=== PATIENT | male | born 1965 | race Caucasian/White ===

== ENCOUNTER 2016-11-16 23:52 | Inpatient (IN) ==
[2016-11-17] MEDS ORDERED: D5% in Water 1,000 ML IV PRN (03:30)
[2016-11-17] MEDS ORDERED: Dextrose Gel 15 GM PO PRN ×2 (03:30)
[2016-11-17] MEDS ORDERED: *HR* Dextrose 50 % in Water (Syg) 50 ML SYRINGE IVP PRN (03:30)
--- NOTE | 2016-11-17 03:33 | Internal Med History&Physical ---
Date of Encounter: 11/17/16 Time of Encounter: 03:28 Assessment and Plan (1) Vasovagal syncope Current visit: Yes Status: Acute Suspect vasovagal' syncope. We will keep on telemetry to look for any arrhythmias given his LV systolic dysfunction. He also has troponin elevation 4.4 which may have been related to hypotension and bradycardia during this event. He mentioned he had an angiogram before showing no occlusive disease. continue aspirin. will hold his heart rate and blood pressure lowering medications tonight. He is also multiple blood pressure lowering medications including digoxin, coreg and Cardizem. Will check digoxin level (2) Atrial fibrillation Current visit: Yes Status: Acute Continues xarelto current rate 60s 70 Qualifiers: Qualified Code(s): I48.91 - Unspecified atrial fibrillation (3) NSTEMI (non-ST elevated myocardial infarction) Current visit: Yes Status: Acute suspect NSTEMI type 2 due to demand ischemia from hypotension and bradycardia. Will try to get records of prior angiogram. Cardiology service to see. (4) Diabetes mellitus type 2 in obese Current visit: Yes Status: Acute Continue long acting and pre-meal insulin (5) CKD stage 3 secondary to diabetes Current visit: Yes Status: Acute Stable Internal Medicine - H&P: HPI Chief complaint: Syncope History of present illness: Mr. Cross is a 51 year old male with a history of non-ischemic cardiomyopathy, chronic persistent atrial fibrillation on anticoagulation diabetes mellitus type II and chronic kidney disease stage III, presented to outside emergency room after a global episode. While patient while sitting down home he started feeling nauseous with epigastric discomfort, felt that he wants to go to the bathroom on his way to continue to feel lightheaded sweaty after which he lost consciousness and fell down. he denies hitting his head. He thinks he lost consciousness only for a few seconds. I continue to feel nauseous afterwards had diarrheal bowel movements. This episode lasted for approximately 15 minutes. He denies any chest pain during that episode. No palpitations. On arrival of the paramedics they reported that his heart rate was 30 short of any further details with regards to presence of any heart block or not he was also hypotensive. He responded well to fluids. He was a symptomatic afterwards. He has not noticed any blood in his bowel movement. No recent febrile illness. History .10 .4 outside emergency room and therefore he was transferred to our facility. He mentioned that he had an angiogram before which showed no occlusive coronary heart disease. Patient denies any focal neurological deficits. Past Med Surg Social Fam HX - Past Medical History Medical history: CHF, hyperlipidemia, hypertension, myocardial infarction, other Psychiatric history: no psych history - Past Surgical History Surgical History: appendectomy, other - Social History Smoking Status: Former smoker Smokeless Tobacco Status: No Alcohol use: occasionally Drug use: none - Family History Mother Hx Family Cancer: Yes (Lung) Internal Medicine - H&P: Meds Carvedilol [Coreg] 25 mg PO BID 12/10/15 [History] Furosemide [Lasix] 40 mg PO DAILY 12/10/15 [History] Aspirin 81 mg PO DAILY #30 tab.chew 12/14/15 [Rx] Diltiazem CD (24hr) [Cardizem CD] 240 mg PO DAILY #30 cap.er.24h 12/14/15 [Rx] Insulin DETEMIR [Levemir] 30 unit SQ HS 30 Days 12/14/15 [Rx] Insulin LISPRO [HumaLOG] 17 units SQ TIDWM 30 Days 12/14/15 [Rx] Lisinopril [Zestril] 20 mg PO DAILY #30 tablet 12/14/15 [Rx] Rivaroxaban [Xarelto] 20 mg PO DAILY #30 tablet 12/14/15 [Rx] Atorvastatin [Lipitor] 10 mg PO HS 11/17/16 [History] Allergies No Known Allergies Allergy (Verified 12/10/15 02:58) All Systems PM: A 10-system review of systems was performed and is negative for pertinent findings except as documented above in the HPI. Review of systems: 10 point review of systems is negative except for HPI - Constitutional Vitals: Temp Pulse Resp BP Pulse Ox 97.6 F 77 16 116/96 95 11/17/16 01:31 11/17/16 01:31 11/17/16 01:31 11/17/16 01:31 11/17/16 01:31 Exam: Gen.: patient is alert and oriented times 3 not in distress Cindy: normal S1 S2 no additional sounds of chest: clear to auscultation abdomen: soft nontender nondistended lower extremity: no swelling neurological no focal deficit
[2016-11-17 04:07] LABS: Creatine Kinase 51 Units/L (30-200)
[2016-11-17 05:07] LABS: Digoxin < 0.3 ng/mL (0.8-2.0)
[2016-11-17] MEDS: 0.9 % Sodium Chloride 1,000 ML IVC SCH (06:08)
[2016-11-17] MEDS: Aspirin 81 MG TAB.CHEW PO SCH (08:29)
[2016-11-17] MEDS: Insulin LISPRO 300 UNITS/3 ML VIAL SQ SCH ×4 (08:30→21:06)
[2016-11-17] MEDS ORDERED: *HR* Rivaroxaban 10 MG TABLET PO SCH (09:00)
--- NOTE | 2016-11-17 09:08 | Cardiology Consult Note ---
Date of Encounter: 11/17/16 Time of Encounter: 08:30 Assessment and Plan (1) Syncope Current Visit: Yes Status: Acute Patient presented after syncopal episode. Per EMS report--patient was incontinent of bowel, HR in the 30's and was hypotensive--90/palp. Reports viral illness a few days prior to event. Continue to hold AV ashkan blocking agents for now--on cardizem, digoxin, and coreg at home. Monitor telemetry. Echocardiogram pending. Carotid US 12/26/15 showed minimal plaque. Qualifiers: Syncope type: unspecified Qualified Code(s): R55 - Syncope and collapse (2) Elevated troponin Current Visit: Yes Status: Acute Mild troponin elevation in the setting of syncopal event likely secondary to bradycardia and hypotension. Likely demand ischemia. No ischemic ECG changes. Denies chest pain. Most recent TTE shows recovered LVEF--60%. [facility] 02/2015: mild-moderate non-obstructive CAD. Repeat echocardiogram pending. Continue asa and statin. Hold betablocker for now. (3) Non-ischemic cardiomyopathy Current Visit: Yes Status: Acute Hx of systolic dysfunction with recovered EF--most recent TTE shows EF 60% ( previously 25% in the past). [facility] 02/19/15: mild-moderate non-obstructive CAD. Appears euvolemic upon exam. (4) Atrial fibrillation Current Visit: Yes Status: Acute Hx of persistent atrial fibrillation dating back to 2014. Previously rate controlled on oral betablocker, digoxin, & calcium channel sukumar; however on hold due to reported HR in 30's per EMS (no strips available ) Avg HR since admission=78 afib. Continue to monitor telemetry, may need to resume medications at decreased doses. Anticoagulated on Xarelto. Qualifiers: Atrial fibrillation type: persistent Qualified Code(s): I48.1 - Persistent atrial fibrillation Discussion w patient/family: The assessment and plan as outlined above was discussed with the patient and/or family members who expressed understanding and agreement. All questions were answered. Thank you for involving us in the care of your patient. Please call with any questions. The patient will be discussed and reviewed with Dr. Unger; changes to be made accordingly. History of Present Illness Consult date: 11/17/16 Requesting physician: Antonio Oliveros Consult reason: Syncope Chief complaint: Syncope History of present illness: Mr. Cross is a 51 year old male with PMH significant for non-ischemic cardiomyopathy with recovered EF, atrial fibrillation, DMII, HTN, ETOH use (3-4 beers/weekend) and obesity who presented to the ED after a syncopal episode at home. He reports he was sitting on his couch and suddenly became diaphoretic, experienced nausea and abdominal cramping; he stood up to walk to the bathroom and passed out. Event was witnessed by his sister who called EMS. Reports flu like symptoms x2 days prior to event. Of note, recently re-started on insulin 2 weeks ago, "ran out" for over a month and blood sugars ran >600. He was taken to [facility] and then was sent to [facility] for further evaluation. Per squad report , HR was in the 30's and BP was 90 over palp--no ECG strips available for review. ECG obtained at [facility] showed Atrial fibrillation, rate 63. Labs at [facility]-- Na 138, K 3.9, Glucose 337, BUN 19, SCr 1.59, Mag 1.5, HgB 14.5 and HCT 44.3 Prior CV testing includes: TTE 12/03/14: EF 20-25% TTE 02/18/15: poor quality study, LV function appears moderately reduced, severely dilated LA and RA LHC 02/19/15: mild-moderate non-obstructive CAD, EF 20-25% (50% mLAD, 20% 1st OM, 15% mRCA) BCS 12/11/16: bilateral carotids have minimal plaque throughout TTE 12/21/15: EF 60%, mild concentric LVH Past Med Surg Social Fam HX - Past Medical History Attestation: Yes The following information was validated with the patient. Source: patient, old records reviewed Medical history: atrial fibrillation, cardiomyopathy (non-ischemic, recovered EF ), diabetes, hypertension, myocardial infarction Psychiatric history: no psych history - Past Surgical History Surgical History: appendectomy - Social History Smoking Status: Former smoker Smokeless Tobacco Status: No Alcohol use: occasionally (3-4 beers/weekend) Drug use: none - Family History Mother Hx Family Cancer: Yes (Lung) Medications and Allergies Carvedilol [Coreg] 25 mg PO BID 12/10/15 [History] Furosemide [Lasix] 40 mg PO DAILY 12/10/15 [History] Aspirin 81 mg PO DAILY #30 tab.chew 12/14/15 [Rx] Diltiazem CD (24hr) [Cardizem CD] 240 mg PO DAILY #30 cap.er.24h 12/14/15 [Rx] Insulin DETEMIR [Levemir] 30 unit SQ HS 30 Days 12/14/15 [Rx] Insulin LISPRO [HumaLOG] 17 units SQ TIDWM 30 Days 12/14/15 [Rx] Lisinopril [Zestril] 20 mg PO DAILY #30 tablet 12/14/15 [Rx] Rivaroxaban [Xarelto] 20 mg PO DAILY #30 tablet 12/14/15 [Rx] Atorvastatin [Lipitor] 10 mg PO HS 11/17/16 [History] Allergies No Known Allergies Allergy (Verified 12/10/15 02:58) All Systems Review: A 10-system review of systems was performed and is negative for pertinent findings except as documented above in the HPI. - Cardiovascular Cardiovascular: as per HPI Physical Examination Vital Signs, Last 4 Hours Temp Pulse Resp BP Pulse Ox 11/17/16 07:16 97.3 F L 75 16 126/97 95 11/17/16 05:31 97.9 F 72 16 123/90 96 General: Conversant, Other (obese) HEENT: Atraumatic, Normocephaly Cardiac: Other (irregularly irregular) Lungs: Normal Breath Sounds Neuro: Alert and responsive Abdomen: Soft Skin: No rashes noted on visualized skin Musculoskeletal: No Chest Wall Tenderness Extremities: No Edema, Normal Pulses Results Lab Results 11/17/16 03:45 Troponin I 0.07 H* Active Medications Aspirin (Aspirin) 81 mg PO DAILY ARGELIA Stop: 05/19/17 09:01 Last Admin: 11/17/16 08:29 Dose: 81 mg Atorvastatin Calcium (Lipitor) 10 mg PO HS ARGELIA Stop: 05/19/17 21:01 Dextrose (Dextrose 5%) 1,000 mls @ 100 mls/hr IV CONT PRN PRN Reason: HYPOGLYCEMIA Stop: 05/19/17 03:31 Sodium Chloride (0.9 % Sodium Chloride) 1,000 mls @ 50 mls/hr IVC .Q20H ARGELIA Stop: 05/19/17 03:46 Last Admin: 11/17/16 06:08 Dose: 50 mls/hr Insulin Human Lispro (Humalog) 0 units SQ TIDAC [facility] PRN Reason: Protocol Stop: 05/19/17 07:31 Last Admin: 11/17/16 08:30 Dose: Not Given Insulin Human Lispro (Humalog) 0 units SQ HS [facility] PRN Reason: Protocol Stop: 05/19/17 21:01 Rivaroxaban (Xarelto) 20 mg PO DAILY [facility] Stop: 05/19/17 09:01 Last Admin: 11/17/16 08:29 Dose: 20 mg - Imaging and Cardiology Echo: report reviewed Cardiac cath: report reviewed Other Results: Telemetry review: avg HR=78 Afib. No significant event noted. - EKG Interpretation EKG results cardiology: personally reviewed Consult Discharge Plan - Plan Referrals: Tarik Barton DO [Primary Care Provider] -
--- NOTE | 2016-11-17 09:31 | Internal Med Progress Note ---
Date of Encounter: 11/17/16 Time of Encounter: 09:00 - Subjective Interval history: Patient is a 51-year-old male admitted for syncope. His past medical history is significant for non-ischemic cardiomyopathy with recovered EF, atrial fibrillation, DMII, HTN, ETOH use (3-4 beers/weekend) and obesity. Patient was seen and examined. He is awake alert oriented 3. Denies dizziness , lightheaded, nausea, vomiting. Patient said that he has stomach cramp before he has syncope. Vital signs stable. We will continue cardiac monitoring, placed cardiac echo and carotid duplex. Cardio consult appreciated. (1) Vasovagal syncope Current visit: Yes Status: Acute Suspect vasovagal' syncope. We will keep on telemetry to look for any arrhythmias given his LV systolic dysfunction. He also has troponin elevation which may have been related to hypotension and bradycardia during this event. He mentioned he had an angiogram before showing no occlusive disease. continue aspirin. will hold his heart rate and blood pressure medications at this point. digoxin level is not high. (2) Atrial fibrillation Current visit: Yes Status: Acute Continues xarelto current rate 60s 70 Qualifiers: Qualified Code(s): I48.91 - Unspecified atrial fibrillation (3) NSTEMI (non-ST elevated myocardial infarction) Current visit: Yes Status: Acute suspect NSTEMI. Patient has no chest pain. He has chronic elevated troponin. Will trend 3 sets of troponin. Cardio consult on case. (4) Diabetes mellitus type 2 in obese Current visit: Yes Status: Acute Continue long acting and pre-meal insulin (5) CKD stage 3 secondary to diabetes Current visit: Yes Status: Acute Stable 6. DVT prophylaxis: Patient is on xarelto. - Constitutional Vitals: Temp Pulse Resp BP Pulse Ox 97.3 F L 75 16 126/97 95 11/17/16 07:16 11/17/16 07:16 11/17/16 07:16 11/17/16 07:16 11/17/16 07:16 General appearance: Present: A&O X 3, answers questions appropriately - Head Head exam: Present: atraumatic, normocephalic - Eye Eye exam: Present: PERRL, conjuntiva pink, sclera anicteric Pupils: Present: PERRL - Neck Neck exam general surgery: Present: supple, trachea midline. Absent: lymphadenopathy - Respiratory Respiratory exam: Present: CTAB. Absent: accessory muscle use, rales, rhonchi, wheezes - Cardiovascular Cardiovascular exam: Present: RRR, +S1, +S2. Absent: diastolic murmur, gallop, rubs, systolic murmur - GI/Abdominal GI/Abdominal exam: Present: normal bowel sounds, soft, no peritoneal signs. Absent: distended, tenderness - Extremities Exam Extremities exam: Present: warm, radial pulses palpable and symetrical. Absent : calf tenderness, cyanotic, pedal edema - Neurological Exam Neurological exam: Present: CN II-XII intact, oriented X3, no focal deficits. Absent: pronater drift, facial droop, speech deficit - Skin Skin exam: Present: dry, intact Internal Medicine: Result - Labs Labs: Cardiac Enzymes 11/17/16 Range/Units 03:45 Troponin I 0.07 H* (0-0.03) ng/mL Consult Discharge Plan - Plan Referrals: Tarik Barton DO [Primary Care Provider] -
[2016-11-17] MEDS ORDERED: Perflutren Lipid Microsphere 1.3 ML in 0.9 % Sodium Chloride 8.7 ML IVP ONE (10:38)
[2016-11-17 12:12] LABS: BUN/Creatinine Ratio 14 (6-26); Blood Urea Nitrogen 14 mg/dL (8-26); Calcium 9.5 mg/dL (8.6-10.8); Carbon Dioxide 21 mEq/L (19-29); Chloride 109 mEq/L (98-109); Creatine Kinase 51 Units/L (30-200); Glucose 174 mg/dL (70-99); Osmolality,Calculated 293 (280-300); Sodium 139 mEq/L (136-145); eGFR For African Americans > 60 (> 60); eGFR For Non-African Americans > 60 (> 60)
[2016-11-17 12:13] LABS: Potassium 4.7 mEq/L (3.5-4.5)
[2016-11-17] MEDS: Diltiazem CD (24hr) 240 MG CAPSULE PO SCH (13:58)
--- NOTE | 2016-11-17 14:49 | ECHO - Doppler Report ---
Echo with Imaging Enhancement Agent Name: Steve Cross Date of Study: 11/17/2016 Date: 1965 Ht: 71.0 in Medical Record#: [id number] Age: 51 Wt: 285.0 lb Gender: Male BSA: 2.45 Order #: [id number] Location: [facility] Room #: [id number] Reading Physician: Vel Mcclain MD, [facility] Motorcycle Mechanic: Indu Arzola RVT Ordering Physician: Antonio Oliveros MD Primary Physician: Tarik Barton DO Indications: Syncope Impressions: Technically sub-optimal due to poor echocardiographic windows. Echo contrast was used. Severe LV systolic dysfunction, LVEF 25%. There is global LV hypokinesis. Indeterminate diastolic function due to atrial fibrillation. Right ventricle was not well visualized. Appears mildly dilated with normal function. Severely dilated left atrium. Severely dilated right atrium. Moderate tricuspid regurgitation. Mild mitral regurgitation. Mild pulmonary hypertension. Estimated RVSP = 37 mmHg. Left Ventricular Wall Motion: Rest Echo Findings The apex, apical inferior, mid inferior, basal inferior, apical anterior, mid anterior, basal anterior, apical septal, mid inferior septal, basal inferior septal, apical lateral, mid anterior lateral, basal anterior lateral, mid anterior septal, mid inferior lateral, basal anterior septal and basal inferior lateral hampton were hypokinetic. Findings: Study Quality * Technically sub-optimal due to poor echocardiographic windows. Echo contrast was used. ECG Findings * Atrial fibrillation. Left Ventricle * Severe LV systolic dysfunction, LVEF 25%. There is global LV hypokinesis. * Normal LV chamber size and wall thickness. * Indeterminate diastolic function due to atrial fibrillation. Right Ventricle * Right ventricle was not well visualized. Appears mildly dilated with normal function. Left Atrium * Severely dilated left atrium. Right Atrium * Severely dilated right atrium. Aorta * Normally sized aortic root. Pericardium * There is no pericardial effusion present. IVC * The IVC is midlly dilated. Tricuspid Valve * Normal tricuspid valve structure. * No tricuspid stenosis. * Moderate tricuspid regurgitation. * Mild pulmonary hypertension. Estimated RVSP = 37 mmHg. Aortic Valve * Trileaflet aortic valve. * Mildly sclerotic aortic valve leaflets. * No aortic stenosis. * No aortic regurgitation. Pulmonic Valve * Pulmonic valve is not well visualized. * No pulmonic stenosis. * Trace pulmonic regurgitation. Mitral Valve * Normal mitral valve structure. * No mitral stenosis. * Mild mitral regurgitation. History Hypertension Diabetes Hypercholesteremia Congestive Heart Failure 12/12/2015 a Previous Echo was performed. Contrast: Definity 1.3 ml in 8.7 ml of saline 3 ml. Measurements: BP: 126/ 97 2D Normal Values RVIDd: 4.50 cm IVSd: 1.00 cm 0.6 - 1.0 cm LVIDd: 5.80 cm 3.7 - 5.6 cm LVPWd: 1.00 cm 0.6 - 1.1 cm LVIDs: 4.90 cm 1.5 - 3.6 cm AO: 3.00 cm < 4.0 cm LA volume: 112 Tricuspid Valve TV Regurg Peak Grad: 29.00mmHg TV Regurg Peak Sebastián: 2.70m/sec Updated by Vel Mcclain MD, [facility] on 11/17/2016 2:43:38 PM electronically signed on 11/17/2016 2:44:10 PM with status of Final Wall Motion [place]: 1=Normal, 2=Hypokinesis, 3=Akinesis, 4=Dyskinesis, 5=Aneurysmal, 6=Hyperkinetic, X=Not Visualized (Blank)=Missing
[2016-11-17] MEDS ORDERED: Enoxaparin Weight Dosing SQ STA (15:49)
[2016-11-17] MEDS: Metoprolol XL (24 HR) Succ 50 MG TAB.ER.24H PO SCH ×2 (16:54→21:02)
[2016-11-18] MEDS: 0.9 % Sodium Chloride 1,000 ML IVC SCH (02:32)
[2016-11-18 05:49] LABS: INR 1.5; Prothrombin Time 15.9 Seconds (9.4-12.1)
[2016-11-18 05:51] LABS: Basophils # 0.1 K/mcL (0.0-0.2); Basophils % 0.7 %; Eosinophils # 0.1 K/mcL (0.0-0.6); Eosinophils % 1.6 %; Hematocrit 49.1 % (37.5-50.1); Hemoglobin 15.5 g/dL (12.9-16.9); Immature Granulocytes % 0.3 % (0-4); Lymphocytes # 2.5 K/mcL (0.6-4.6); Lymphocytes % 33.4 %; Mean Corpuscular HGB Conc 31.6 g/dL (31.6-35.5); Mean Platelet Volume 11.6 fL (9.4-12.4); Monocytes # 0.6 K/mcL (0.0-1.3); Monocytes % 7.8 %; Neutrophils # 4.2 K/mcL (1.6-8.9); Platelet Count 252 K/mcL (140-400); Red Blood Count 5.17 M/mcL (4.19-5.50); Red Cell Distribution Width 13.9 % (11.5-14.5); Segmented Neutrophils % 56.2 %
[2016-11-18 05:59] LABS: BUN/Creatinine Ratio 11 (6-26); Blood Urea Nitrogen 15 mg/dL (8-26); Calcium 9.6 mg/dL (8.6-10.8); Carbon Dioxide 25 mEq/L (19-29); Chloride 107 mEq/L (98-109); Glucose 234 mg/dL (70-99); Osmolality,Calculated 300 (280-300); Potassium 4.2 mEq/L (3.5-4.5); Sodium 141 mEq/L (136-145); eGFR For African Americans > 60 (> 60); eGFR For Non-African Americans 58 (> 60)
--- NOTE | 2016-11-18 08:52 | Event Note ---
Date of Encounter: 11/18/16 Time of Encounter: 08:49 - Cardiology Event Note EF reduced, 25%. Hx of NICMP that recovered, but now reduced again. [facility] 02/2015 with mild-moderate CAD. Need to rule out ischemic cause of recurrent CMP. Recommend [facility], which pt agrees to. R/B/A discussed. A-Fib, HR currently 60s at bedside. Meds adjusted. Home meds of cardizem and coreg were stopped. Toprol XL started yesterday and digoxin resumed. On Xarelto at home for anticoagulation, currently on hold. OREN-I initiated due to CMP. Creatinine mildly increased today to 1.32. Gentle hydration with IV fluids and will monitor renal function closely.
[2016-11-18] MEDS: *HR* Digoxin 0.25 MG TABLET PO SCH (10:02)
[2016-11-18] MEDS: Diltiazem CD (24hr) 240 MG CAPSULE PO SCH (10:02)
[2016-11-18] MEDS: Insulin LISPRO 300 UNITS/3 ML VIAL SQ SCH ×4 (10:02→21:31)
[2016-11-18] MEDS: Aspirin 81 MG TAB.CHEW PO SCH (10:02)
[2016-11-18] MEDS: Metoprolol XL (24 HR) Succ 50 MG TAB.ER.24H PO SCH (10:03)
[2016-11-18] MEDS ORDERED: Heparin 1,000 UNITS/500 mL NS 500 ML ONE (14:14)
[2016-11-18] MEDS ORDERED: *HR* Heparin 10,000 UNIT/10 ML VIAL ONE (14:14)
[2016-11-18] MEDS ORDERED: 0.9 % Sodium Chloride 1,000 ML ONE ×2 (14:14→15:01)
--- NOTE | 2016-11-18 14:44 | Pre-Sedation Evaluation ---
Pre-sedation evaluation - Pre-sedation checklist Date of procedure: 11/18/16 Procedure: [facility] Recent Vitals: Last Vital Signs Temp 97.8 F 11/18/16 11:31 Pulse 83 11/18/16 11:31 Resp 16 11/18/16 11:31 BP 132/114 11/18/16 11:31 Pulse Ox 95 11/18/16 11:31 H&P (including ROS) documented in medical record: Yes Previous reaction to sedatives/anesthetics: No Dietary Status: NPO after Midnight Airway Assessment: Patient can open mouth completely, TMJ function normal, Micrognathia (under-bite, receding chin) absent, Neck with adequate range of motion Dentition: No loose teeth or bridges Possible difficult airway: No ASA Classification *see protocol: CLASS II-Mild systemic disease Plan of Care: Pt appropriate candidate for procedure/moderate/conscious sedation , Risks/benefits of procedure/sedation discussed w/ patient/family
[2016-11-18] MEDS ORDERED: *HR* Midazolam HCl 2 MG/2 ML VIAL ONE (15:01)
[2016-11-18] MEDS ORDERED: *HR* FentaNYL (PF) 100 MCG/2 ML VIAL ONE (15:01)
[2016-11-18] MEDS ORDERED: Nitroglycerin 1,000 MCG/10 ML VIAL IV ONE (15:09)
[2016-11-18] MEDS ORDERED: *HR* Adenosine 6 MG/2 ML VIAL IVP ONE ×2 (15:28→15:30)
[2016-11-18] MEDS ORDERED: *HR* Bivalirudin 250 MG VIAL IVC ONE ×2 (15:31→15:50)
[2016-11-18] MEDS ORDERED: *HR* Ticagrelor 90 MG TABLET ONE (15:50)
[2016-11-18] MEDS ORDERED: Nitroglycerin 0.4 MG TAB.SUBL SL PRN (16:05)
--- NOTE | 2016-11-18 16:26 | Invasive Diagnostic Lab Proc ---
Name: Steve Cross Date of Study: 11/18/2016 Date: 1965 Ht: 70.9in Medical Record#: [id number] Age: 51 Wt: 284.40lb Gender: Male BSA: 2.45 Order #: [id number] BMI: 39.81 Physicians Procedure Physician: Linda Faulkner MD, FACC Referring MD: Referring MD: Staff Name Position Time In Rachael Bhat RN Capacitor Pack Press Operator 02:59 PM Vilma Wyatt RN Nurse 02:59 PM Pat Gonzalez RT (R) Monitor 03:01 PM Sites, Carmel RT (R) Scrub 03:15 PM Indications Indication Cardiomyopathy Non-Stemi Procedures Performed Procedure L HRT ARTERY/VENTRICLE ANGIO IV Doppler BLD Flow 1st Vessel PRQ CARD BM STENT W/ANGIO 1 VSL Pre-Procedure Checklist Informed consent is complete signed and on chart. H\\T\\P is on chart. ID band is on and ID verified with patient. Patient NPO for procedure The procedure was described for the patient and questions were answered. Blood Pressure: 106/85 ECG is on chart. Plan of Care Patient will tolerate the procedure without complications. Adequate level of comfort will be maintained. Hemodynamics will remain stable Patient will recover from procedure without complications. Respiratory function will be maintained. Cardiac rhythm will remain stable. Patient temperature will be maintained. Patient and/or family have verbalized understanding of the procedure. Patient Education Chief Complaint/Reason for Test: Cardiac Cath Developmental Category: Adult (18-64 years) Developmentally Appropriate for Age: Yes Learning Barriers: None Education Needs: Procedure Education Method: Verbal Information Taught: Cardiac Cath Educational Evaluation: Able to repeat information Intravenous Access Time IV Size Location DC'd Fluid/Drip Rate Units RN 02:16 PM Started with 20g 1 1/4" Rt Wrist Allergies No Known Allergies Vital Signs Time BP (mmHg) HR (bpm) O2 Sat. RR (bpm) LOC 02:17 PM 106 / 85 88 93 % 03:02 PM / % 5 = Fully awake and oriented or at pre-proc level 03:02 PM / % 4 = Oriented but drowsy 03:17 PM / % 4 = Oriented but drowsy 03:32 PM / % 4 = Oriented but drowsy 03:47 PM / % 4 = Oriented but drowsy 03:04 PM 101 / 52 99 85 % 37 03:09 PM 129 / 86 80 85 % 24 03:14 PM 114 / 87 86 94 % 12 03:19 PM 112 / 61 78 91 % 25 03:24 PM 121 / 79 75 94 % 16 03:29 PM 120 / 87 69 95 % 21 03:34 PM 116 / 81 68 95 % 16 03:39 PM 104 / 89 78 96 % 20 03:44 PM 116 / 91 64 95 % 17 03:49 PM 123 / 77 85 95 % 25 03:54 PM 119 / 79 61 92 % 24 03:59 PM 130 / 91 % 04:02 PM / % 5 = Fully awake and oriented or at pre-proc level Procedural Medications Time Medication Dose Units Method Given By 03:01 PM Oxygen 2 L/min nasal cannula Sites, Carmel RT (R) 03:07 PM Versed 2 mg Intravenous [place]ael RN 03:08 PM Fentanyl 50 mcg Intravenous Perlita, Rachael KOO 03:13 PM Oxygen 4 L/min nasal cannula Perlita, Rachael KOO 03:15 PM Oxygen 6 L/min simple face mask Perlita, Rachael KOO 03:17 PM Oxygen 8 L/min simple face mask [place], Rachael KOO 03:18 PM Oxygen 10 L/min simple face mask [place], Rachael KOO 03:20 PM Lidocaine 2% 17 ml Subcutaneous Linda Faulkner MD, FACC 03:33 PM Angiomax 0.75mg/kg bolus: 19 ml Intravenous Rachael Bhat RN 03:35 PM Angiomax 1.75mg/kg/hr 45.1 mcg/kg/Hr Intravenous Linda Faulkner MD, FACC 03:36 PM Oxygen 6 L/min simple face mask [place]Rachael donato RN 03:42 PM Adenosine 400 mcg Intracoronary Linda Faulkner MD, FACC 03:49 PM Angiomax 1.75mg/kg/hr: 45.1 ml Intravenous Rachael Bhat RN 03:50 PM Nitroglycerin 200 mcg Intracoronary Linda Faulkner MD, FACC 03:51 PM Adenosine 400 mcg Intracoronary Linda Faulkner MD, FACC 04:00 PM Brilinta 180 mg Orally Michael Tam RN ASA Classification: CLASS II- Mild systemic disease (i.e. well-controlled diabetes, hypertension, asthma, cigarette smoking) Leeann Score Preprocedure Postprocedure Activity 2- Moves 4 extremities sustained head lift Activity 2- Moves 4 extremities sustained head lift Circulation 2- SBP +/= 20 points of pre-anesthetic level Circulation 2- SBP +/= 20 points of pre-anesthetic level Consciousness 2- Awake and alert oriented x 3 Consciousness 2- Awake and alert oriented x 3 O2 Saturation 2- Able to maintain O2 satruation of 92% on room air O2 Saturation 2- Able to maintain O2 satruation of 92% on room air Respiratory 2- Able to deep breathe and cough well Respiratory 2- Able to deep breathe and cough well Total Score 10 Total Score 10 Contrast Agent: Isovue Diagnostic Contrast: 145 ml Total Contrast: 145 ml Fluoro Dose: 905 mGy Procedure Log Time Note Enter By 02:23 PM CathStat 02:59 PM Pt arrived to cardiac cath lab radiology technologist 2 at 14:59 :59 PM Rachael Bhat RN Position: Capacitor Pack Press Operator Time in: 14:59 dsp 03:00 PM Vilma Wyatt RN Position: Nurse Time in: 14:59 03:00 PM Patient charges- Angio tray pack, Navilyst 3mm J, Pulse Oximetry and ACIST tubing and transducer dspell 03:00 PM IV Supplies used: J loop Angio Cath. dspell 03:00 PM Case Delayed No ell 03:00 PM Physician arrived 15:00 03:00 PM Bandar and doug completed 03:00 PM Sign in performed according to hospital policy. 03:00 PM Procedure start 15:00 03:01 PM Pat Gonzalez RT (R) Position: Monitor Time in: 15:01 03: PM Time: 15:01 Oxygen on at 2 L/min per nasal cannula by Carmel Javier RT (R) 03:01 PM Time: 15:01 Patient comfortable and pain free: Yes dspell 03:02 PM Time: 15:02LOC: 5 = Fully awake and oriented or at pre-proc level dspell 03:03 PM Case Start 03:03 PM Vitals capture started with the following parameters, Patient=Adult, Interval=5 min, Initial Djpiluvu=794 mmHg, Deflation Rate=5 mmHg, Cuff placed on Left Arm 03:04 PM HR=99 bpm, DECH=759/52 mmhg, SpO2=85.0 %, Resp=37 B/min, Comment=A-fib 03:04 PM Clinical Presentation: Non-STEMI 03:06 PM ASA Class CLASS II- Mild systemic disease (i.e. well-controlled diabetes, hypertension, asthma, cigarette smoking) 03:06 PM Hair removed from procedure site in procedure lab using clippers. Bilateral groin prepped with Chloraprep by Vilma Wyatt RN, safety strap applied then patient was draped. Skin intact. 03:07 PM Time: 15:07 Versed 2 mg Intravenous Given by Rachael Bhat RN 03:08 PM Time: 15:08 Fentanyl 50 mcg Intravenous Given by Rachael Bhat RN 03:09 PM HR=80 bpm, BVSQ=600/86 mmhg, SpO2=85.0 %, Resp=24 B/min, Comment=A-fib 03:13 PM Time: 15:13 Oxygen on at 4 L/min per nasal cannula by Rachael Bhat RN 03:13 PM Pressure channel 1 zeroed. 03:14 PM HR=86 bpm, MYYO=830/87 mmhg, SpO2=94.0 %, Resp=12 B/min, Comment=A-fib 03:15 PM Sites, Carmel RT (R) Position: Scrub Time in: 15:15 03:15 PM Time: 15:15 Oxygen on at 6 L/min per simple face mask by Rachael Bhat RN 03:17 PM Time: 15:02LOC: 4 = Oriented but drowsy dspdom 03:17 PM Time: 15:01 Patient comfortable and pain free: Yes ej 03:17 PM Time: 15:17 Oxygen on at 8 L/min per simple face mask by Rachael Bhat RN 03:18 PM Time: 15:18 Oxygen on at 10 L/min per simple face mask by Rachael Bhat RN 03:19 PM HR=78 bpm, MFXH=938/61 mmhg, SpO2=91.0 %, Resp=25 B/min, Comment=A-fib 03:20 PM Time: 15:20 17 ml Lidocaine 2% to right groin Subcutaneous Given by Linda Faulkner MD, [facility] 03:23 PM Access obtained by percutaneous puncture. 5Fr 10cm Terumo [place] sheath placed in right Femoral artery. [id number] dspellman 03:23 PM 5Fr FL 4 catheter inserted over the wire DN dspellman 03:23 PM 0.035 145cm Navilyst 3mmJ wire [id number] dspellman 03:23 PM LCA angiography performed in multiple views. dspellman 03:24 PM Catheter removed dspellman 03:24 PM HR=75 bpm, WTZD=872/79 mmhg, SpO2=94.0 %, Resp=16 B/min, Comment=A-fib 03:24 PM 5Fr FR 4 catheter inserted over the wire DN dspellman 03:25 PM RCA angiography performed in multiple views. dspellman 03:26 PM Recorded Pressure: Ao, HR=72, Condition=Condition 1 (Aorta) Ao 111/92/103 03:26 PM Recorded Pressure: Ao, HR=72, Condition=Condition 1 (Aorta) Ao 107/90/99 03:27 PM Catheter removed dspellman 03:27 PM 5Fr Pigtail catheter inserted over the wire [facility] dspellman 03:27 PM Catheter selectively placed in left ventricle dspellman 03:27 PM Bolus angiogram of left Ventricle complete: 8 ml/sec for a total of 24 mls dspellman 03:27 PM Coronary Dominance: right dspellman 03:28 PM Lesion found in Mid LAD. Pre Stenosis: 60 Pre BALBIR Flow: 3: Complete and Brisk Flow/Perfusion dspellman 03:28 PM Mid/Distal Left Anterior Descending Coronary Artery and diagonal branches with 60% stenosis. If graft is supplying this area, 0 % stenosis dspellman 03:28 PM Pressure channel 1 zeroed. 03:28 PM Recorded Pressure: LV, HR=80, Condition=Condition 1 (Left Ventricle) LV 96/25/28 03:29 PM HR=69 bpm, GZBK=715/87 mmhg, SpO2=95.0 %, Resp=21 B/min, Comment=A-fib 03:29 PM Recorded Pressure: LV, Ao, HR=73, Condition=Condition 1 (Left Ventricle) LV 104/34/41, (Aorta) Ao 110/93/102 03:30 PM Catheter removed dspellman 03:30 PM Sheath exchanged for a 6 Fr 11 cm Cordis Lizzy sheath [id number] dspellman 03:31 PM 6Fr XB LAD 3.5 Cordis guide catheter was used to cannulate the PCI vessel successfully. reused? No dspell 03:31 PM Inflation device was opened. dspell 03:32 PM Time: 15:17 Patient comfortable and pain free: Yes dspell 03:32 PM Time: 15:17LOC: 4 = Oriented but drowsy dspell 03:34 PM Time: 15:33 Angiomax 0.75mg/kg bolus: 19 ml Intravenous Given by Rachael Bhat RN Santillan pump dspell 03:34 PM HR=68 bpm, JFZO=421/81 mmhg, SpO2=95.0 %, Resp=16 B/min, Comment=A-fib 03:34 PM [employer] Comet FFR wire advanced to target lesion. dspell 03:35 PM Time: 15:35 Angiomax 1.75 mg/kg/hr: 45.1 ml administered INtravenous by Rachael Bhat RN yudi 03:36 PM Recorded Pressure: Ao, HR=72, Condition=Condition 1 (Aorta) Ao 107/80/93 03:37 PM Time: 15:36 Oxygen on at 6 L/min per simple face mask by Rachael Bhat RN 03:39 PM HR=78 bpm, LIXA=517/89 mmhg, SpO2=96.0 %, Resp=20 B/min, Comment=A-fib 03:42 PM Time: 15:42 Adenosine 400 mcg administered Intracoronary by Linda Faulkner MD, [facility] dspell 03:42 PM Recorded Pressure: Ao, HR=69, Condition=Condition 1 (Aorta) Ao 107/74/90 03:42 PM FFR Measurement: 0.72 dspellman 03:44 PM Recorded Pressure: Ao, HR=70, Condition=Condition 1 (Aorta) Ao 112/83/97 03:44 PM HR=64 bpm, AAFN=198/91 mmhg, SpO2=95.0 %, Resp=17 B/min, Comment=A-fib 03:46 PM PCI lesion in Mid LAD. Pre Stenosis: 70 Pre BALBIR Flow: 3: Complete and Brisk Flow/Perfusion dspellman 03:46 PM 3.0mm x 16mm Synergy drug-eluting stent across target lesion- successful Lot #[id number] dspellman 03:47 PM Time: 15:32LOC: 4 = Oriented but drowsy dspell 03:47 PM Time: 15:32 Patient comfortable and pain free: Yes dspell 03:47 PM Stent deployed @ 12 bethanie for 30 seconds dspellman 03:48 PM Stent balloon reinflated @ 15 bethanie for 15 seconds dspellman 03:49 PM HR=85 bpm, SUZG=832/77 mmhg, SpO2=95.0 %, Resp=25 B/min, Comment=A-fib 03:50 PM Time: 15:50 Nitroglycerin 200 mcg Intracoronary Given by Linda Faulkner MD, [facility] dspell 03:51 PM Time: 15:51 Adenosine 400 mcg administered Intracoronary by Linda Faulkner MD, [facility] dspellman 03:52 PM Recorded Pressure: Ao, HR=80, Condition=Condition 1 (Aorta) Ao 105/76/90 03:52 PM FFR Measurement: 0.87 dspellman 03:53 PM Flow Wire removed intact dspellman 03:53 PM Stent delivery system removed intact. dspellman 03:53 PM Guide catheter removed intact. dspell 03:54 PM Bolus angiogram of right Femoral complete: 4 ml/sec for a total of 7 mls dspell 03:54 PM HR=61 bpm, SYRM=245/79 mmhg, SpO2=92.0 %, Resp=24 B/min, Comment=A-fib 03:56 PM Procedure completed at 15:54 [email or web address] 03:56 PM Sign out completed: Radiation Dose 904.97 mGy Fluoro Time: 5.7 Isovue 370 - 200ml contrast 145 ml given by Linda Faulkner MD, [facility]. Complications: NoneCardiac Rehab Consult needed: YesConfirmed administered medications: Yes dspell 03:59 PM GZGQ=098/91 mmhg 04:00 PM Time: 16:00 Brilinta 180 mg Orally Given by Michael Tam RN dspell 04:02 PM Time: 15:47 Patient comfortable and pain free: Yes dspellman 04:02 PM Time: 15:47LOC: 4 = Oriented but drowsy dspellman 04:03 PM Lesion found in Proximal RCA. Pre Stenosis: 25 Pre BALBIR Flow: dspellman 04:04 PM Lesion found in Mid RCA. Pre Stenosis: 25 Pre BALBIR Flow: dspellman 04:04 PM Lesion found in Distal RCA. Pre Stenosis: 25 Pre BALBIR Flow: dspellman 04:04 PM Lesion found in Proximal LAD. Pre Stenosis: 30 Pre BALBIR Flow: dspellman 04:05 PM Lesion found in Proximal Circumflex. Pre Stenosis: 20 Pre BALBIR Flow: dspellman 04:05 PM Lesion found in Right PDA. Pre Stenosis: 30 Pre BALBIR Flow: dspellman 04:05 PM Sheath left in place to be pulled on floor/holding areaV+Pad dspellman 04:06 PM Post ECG Atrial Fibrillation dspellman 04:06 PM Post Blood Pressure 130/91 dspellman 04:06 PM 16:06 Post Pulses Bilateral DP \\T\\ PT 1+ dspellman 04:07 PM Information taught Cardiac Cath and ACID PATROLLER/Stent dspell 04:07 PM Education needs Procedure, Disease Process, and Responsibilities of Patient in Care dspell 04:07 PM Learning barriers :None dspell 04:07 PM Education Methods Verbal dspell 04:07 PM Education evaluation Able to repeat information dspell 04:07 PM Site status No bleeding/hematoma - Rt Groin as reported by Sites, Carmel RT (R) at 16:07 dspellman 04:07 PM Opsite applied dspell 04:07 PM Family placed in none present. dspellman 04:07 PM Complications: None dspellman 04:08 PM Fluoro Time: 5.7 dspell 04:08 PM Isovue 370 - 200ml contrast 145 ml given by Linda Faulkner MD, FACC. dspell 04:08 PM Radiation Dose 904.97 mGy dspell 04:14 PM Report given to Marek KOO Pt taken to Room #13. 16:14 dspellman 04:17 PM Time: 16:02LOC: 5 = Fully awake and oriented or at pre-proc level dspell 04:17 PM Time: 16:02 Patient comfortable and pain free: Yes [facility] Complications Complication None None Hemodynamics Pressures Site Systolic/A Wave Diastolic/V Wave Mean AO 111 92 103 AO 107 90 99 LV 96 25 28 LV 104 34 41 AO 110 93 102 AO 107 80 93 AO 107 74 90 AO 112 83 97 AO 105 76 90 Post Procedure Information Blood Pressure: 130/91 mmHg Rhythm: Atrial Fibrillation Closure Device Time Device Success/Fail 11/18/2016 4:09:00 PM Manual Compression Site Checks Time Location Status Staff Sheath In? Note 04:07 PM Rt Groin No bleeding/hematoma Sites, Carmel RT (R) Pulses Time Site Pre-Procedure Post-Procedure Note 11/18/2016 2:17:00 PM Bilateral DP \\T\\ PT 1+ 11/18/2016 2:17:00 PM Bilateral radial 2+ 4:06:00 PM Bilateral DP \\T\\ PT 1+ Updated by Pat Gonzalez, RT (R) on 11/18/2016 4:20:29 PM Pat Gonzalez RT electronically signed on 11/18/2016 4:21:13 PM with status of Final
--- NOTE | 2016-11-18 16:48 | Invasive Diagnostic Lab ---
Name: Steve Cross Date of Study: 11/18/2016 Date: 1965 Ht: 180.0 cm /70.9 in Medical Record#: [id number] Age: 51 Wt: 129. kg / 284.40 lb Account/Order#: [id number] Gender: Male BSA: 2.45 Order #: [id number] Fluoro Dose: 905 mGy BMI: 39.81 Procedure Physician: Linda Faulkner MD, [facility] Referring MD: Referring MD: Procedures Performed: LEFT HEART CATH IV Doppler BLD Flow 1st Vessel Stent w/ PTCA Single Major Vessel Indications: Cardiomyopathy, Non-Stemi Impressions: Single vessel coronary artery disease. Patient had successful PTCA/Drug-Eluting Stent placement in the mid LAD. Mixed ischemic/nonischemic cardiomyopathy. Severe global LV dysfunction EF 25% FFR Measurement: 0.72 in mid LAD prior to PCI Recommendations: Dual antiplatelet therapy. Optimal medical therapy of patient's disease. Aggressive risk factor modification. History/Risk Factors: Cardiomyopathy Diabetes Hypertension Dyslipidemia CHF Prior CO Procedure Access obtained in the right Femoral artery by percutaneous puncture Patient had successful PTCA/Drug-Eluting Stent placement in the mid LAD. A pressure tipped wire was advanced through the catheter into the LAD. Measurements of FFR were made during hyperemia induced by intracoronary adenosine. FFR Measurement 0.72 Complications: None, None Contrast: Isovue 145ml Closure Device: Manual Compression Hemodynamics: Pressures Site Systolic/ A Wave Diastolic/ V Wave End Diastolic/ Mean HR AO 111 92 103 72 AO 107 90 99 72 LV 96 25 28 80 LV 104 34 41 70 AO 110 93 102 79 AO 107 80 93 72 AO 107 74 90 69 AO 112 83 97 70 AO 105 76 90 80 LV Ventriculography Ejection Method: LV Gram Ejection Fraction: 25% Wall Motion: PULIDO Anterobasal Severe Hypokinesis Anterolateral Severe Hypokinesis Apical: Severe Hypokinesis Inferoapical Severe Hypokinesis Inferobasal Severe Hypokinesis Coronary Dominance: right Lesion Findings/Interventions * Left Main Coronary Artery The LMCA is angiographically free of disease. * Left Anterior Descending There is a 30% stenosis in the Proximal LAD. There is a 16 mm long, 70% stenosis in the Mid LAD. FFR 0.72 The lesion has a BALBIR flow of 3. An intervention was performed on the Mid LAD with a final stenosis of 0%. There were no lesion complications. The final BALBIR flow was 3. * Circumflex There is a 20% stenosis in the Proximal Circumflex. * Right Coronary Artery There is a 25% stenosis in the Proximal RCA. There is a 25% stenosis in the Mid RCA. There is a 25% stenosis in the Distal RCA. There is a 30% stenosis in the Right PDA. Interventional Device(s) Vessel Segment Type Name Diameter (mm) Length (mm) Mid LAD drug-eluting stent Synergy 3 16 Mid LAD linkedü Comet FFR wire Updated by Linda Faulkner MD, FACC on 11/18/2016 4:41:25 PM Linda Faulkner MD, FACC electronically signed on 11/18/2016 4:43:10 PM with status of Final
--- NOTE | 2016-11-18 16:53 | Internal Med Progress Note ---
Date of Encounter: 11/18/16 Time of Encounter: 10:00 - Subjective Interval history: Patient is a 51-year-old male admitted for syncope. His past medical history is significant for non-ischemic cardiomyopathy with recovered EF, atrial fibrillation, DMII, HTN, ETOH use (3-4 beers/weekend) and obesity. Patient was seen and examined. He is awake alert oriented 3. Denies dizziness , lightheaded, nausea, vomiting. However, Echo shows LVEF 25%. Cardio consult appreciated. Plan for cardio catheterization today. (1) Syncope Current visit: Yes Status: Acute Suspect vasovagal' syncope. But the patient has a low cardiac output, which may also contribute to syncope. Plan for catheterization today. We will keep on telemetry to look for any arrhythmias given his LV systolic dysfunction. (2) Atrial fibrillation Current visit: Yes Status: Acute Continues xarelto current rate 60s 70. Change to metoprolol XL for rate control. Continue xarelto (hold now for catheterization) Qualifiers: Qualified Code(s): I48.91 - Unspecified atrial fibrillation (3) Systolic CHF Current visit: Yes Status: Acute LVEF 25%, etiology undetermined. Plan for catheterization. Continue beta sukumar and OREN inhibitor (4) Diabetes mellitus type 2 in obese Current visit: Yes Status: Acute Continue long acting and pre-meal insulin (5) CKD stage 3 secondary to diabetes Current visit: Yes Status: Acute Stable 6. DVT prophylaxis: Patient is on xarelto. - Constitutional Vitals: Temp Pulse Resp BP Pulse Ox 97.8 F 80 18 107/95 97 11/18/16 11:31 11/18/16 16:24 11/18/16 16:24 11/18/16 16:24 11/18/16 16:24 General appearance: Present: A&O X 3, answers questions appropriately Internal Medicine: Result - Labs CBC & Chem 7: 11/18/16 05:23 11/18/16 05:23 Labs: Short CBC 11/18/16 Range/Units 05:23 WBC 7.4 (4.3-11.1) K/mcL Hgb 15.5 (12.9-16.9) g/dL Hct 49.1 (37.5-50.1) % Plt Count 252 (140-400) K/mcL Neutrophils # 4.2 (1.6-8.9) K/mcL BMP 11/18/16 05:23 Sodium 141 Potassium 4.2 Chloride 107 Carbon Dioxide 25 BUN 15 Creatinine 1.32 H Glucose 234 H Calcium 9.6 - ABG Interpretation ABG results: PT/INR, D-dimer PT 15.9 Seconds (9.4-12.1) H 11/18/16 05:23 - VTE Documentation of Mechanical Device: Intermittent pneumatic compression device Consult Discharge Plan - Plan Referrals: Tarik Barton DO [Primary Care Provider] -
--- NOTE | 2016-11-18 19:03 | Carotid Imaging Report ---
Carotid Duplex Patient Name:Steve Cross Order Number:[id number] Procedure Date:11/17/2016 Date:1965Age:51 yrs Gender:Male Lt BP:123 / 97 mmHg Location:[facility] Room #: 2NE30 Professor Of Counseling:Indu Arzola RVT Referring MD:Antonio Oliveros MD platform engineer:Tarik aBrton, DO Reading MD:Uday Vasquez MD , FACS Primary Indications:syncope Risk Factors Yes/No Hypertension Yes Diabetes Yes Anticoagulants Yes Impressions: Findings: Bilateral carotid systems are essentially normal. Findings Carotid Duplex: Liu scale imaging combined with Doppler flow analysis suggests normal findings on the right. Left: There is nonstenotic plaque in the left bifurcation. There is smooth homogeneous plaque. Carotid Results Right PSV EDV Assessment Proximal CCA 87 24 Normal Mid CCA 80 27 Normal Distal CCA 79 29 Normal Bifurcation 67 26 Normal Proximal ICA 44 21 Normal Mid ICA 80 32 Normal Distal ICA 55 20 Normal ECA 87 17 Normal Vertebral Artery 37 17 Antegrade Flow Left PSV EDV Assessment Proximal CCA 88 23 Normal Mid CCA 80 26 Normal Distal CCA 74 25 Normal Bifurcation 56 19 Non Stenotic Plaque Proximal ICA 51 24 Normal Mid ICA 66 25 Normal Distal ICA 60 25 Normal ECA 76 19 Normal Vertebral Artery 57 17 Antegrade Flow Ratio's Right ICA/CCA Ratio: 1.00 ICA/CCA Values: 80/80 Left ICA/CCA Ratio: 0.82 ICA/CCA Values: 66/80 Updated by Uday Vasquez MD, FACS on 11/18/2016 6:58:43 PM Uday Vasquez MD electronically signed on 11/18/2016 6:59:29 PM with status of Final
[2016-11-18] MEDS ORDERED: *HR* Atropine Sulfate 1 MG/10 ML SYRINGE ONE (22:00)
[2016-11-19] MEDS: Metoprolol XL (24 HR) Succ 50 MG TAB.ER.24H PO SCH ×3 (00:16→20:05)
[2016-11-19 07:06] LABS: Basophils % 0.4 %; Eosinophils # 0.1 K/mcL (0.0-0.6); Eosinophils % 1.6 %; Hematocrit 43.3 % (37.5-50.1); Immature Granulocytes % 0.3 % (0-4); Lymphocytes # 1.2 K/mcL (0.6-4.6); Lymphocytes % 17.3 %; Mean Corpuscular HGB Conc 31.6 g/dL (31.6-35.5); Mean Corpuscular Volume 94.7 fL (83.0-100.0); Mean Platelet Volume 11.4 fL (9.4-12.4); Monocytes # 0.5 K/mcL (0.0-1.3); Monocytes % 7.1 %; Neutrophils # 5.1 K/mcL (1.6-8.9); Platelet Count 225 K/mcL (140-400); Red Blood Count 4.57 M/mcL (4.19-5.50); Red Cell Distribution Width 13.8 % (11.5-14.5); Segmented Neutrophils % 73.3 %
[2016-11-19 07:07] LABS: Hemoglobin 13.7 g/dL (12.9-16.9)
[2016-11-19 07:22] LABS: BUN/Creatinine Ratio 15 (6-26); Blood Urea Nitrogen 16 mg/dL (8-26); Carbon Dioxide 20 mEq/L (19-29); Chloride 111 mEq/L (98-109); Glucose 211 mg/dL (70-99); Osmolality,Calculated 295 (280-300); Sodium 139 mEq/L (136-145); eGFR For African Americans > 60 (> 60); eGFR For Non-African Americans > 60 (> 60)
[2016-11-19 07:23] LABS: Calcium 8.1 mg/dL (8.6-10.8)
[2016-11-19] MEDS: Insulin LISPRO 300 UNITS/3 ML VIAL SQ SCH ×4 (09:00→21:28)
[2016-11-19] MEDS: *HR* Digoxin 0.25 MG TABLET PO SCH (09:02)
[2016-11-19] MEDS: Aspirin 81 MG TAB.CHEW PO SCH (09:02)
[2016-11-19] MEDS: Diltiazem CD (24hr) 240 MG CAPSULE PO SCH (09:02)
--- NOTE | 2016-11-19 09:12 | Cardiology Progress Note ---
Date of Encounter: 11/19/16 Time of Encounter: 09:09 Assessment and Plan (1) Syncope Current Visit: Yes Status: Acute Patient presented after syncopal episode. Per EMS report--patient was incontinent of bowel, HR in the 30's and was hypotensive--90/palp. Reports viral illness a few days prior to event. Possible vasovagal event. Cannot rule out ventricular arrhythmia in the setting of acute systolic dysfunction with EF of 25%. Lifevest recommended prior to discharge. Lifevest order faxed. Patient is agreeable. Continue to monitor telemetry. Carotid US 12/26/15 showed minimal plaque. Qualifiers: Syncope type: unspecified Qualified Code(s): R55 - Syncope and collapse (2) Atrial fibrillation Current Visit: Yes Status: Acute Hx of persistent atrial fibrillation dating back to 2014. Previously rate controlled on oral betablocker, digoxin, & calcium channel sukumar; however on hold due to reported HR in 30's per EMS (no strips available ) Avg HR since admission=75 afib. Now back on home medications without evidence of significant bradycardia or pauses since admission. On xarelto at home. Held for [facility]. We will restart Xarelto today. Stroke versus bleeding discussed with patient. He will now be on triple therapy. Patient agrees to continue. Qualifiers: Atrial fibrillation type: persistent Qualified Code(s): I48.1 - Persistent atrial fibrillation (3) NSTEMI (non-ST elevated myocardial infarction) Current Visit: Yes Status: Acute Status post left heart catheterization with a drug-eluting stent to the mid LAD. Minimal disease otherwise. EF 25% on angiogram. Patient is reported to have a non-ischemic/ischemic cardiomyopathy. Importance of continuing Plavix and aspirin uninterrupted for a minimum of 1 year discussed with patient and he voiced understanding. Continue statin and beta sukumar. Cardiac rehabilitation was recommended. Healthy diet and exercise reviewed with patient. Activity restrictions including no driving for one week, no heavy lifting over 10 pounds for 1 week, and no tub baths reviewed with patient and he voiced understanding. (4) Non-ischemic cardiomyopathy Current Visit: Yes Status: Acute Hx of systolic dysfunction with recovered EF--most recent TTE shows EF 60% ( previously 25% in the past). [facility] 02/19/15: mild-moderate non-obstructive CAD. Now EF is 25%. Left heart catheterization showed severe stenosis in the mid LAD. Nonischemic and ischemic cardiomyopathy. Currently euvolemic on exam. CHF education reviewed with patient including low sodium diet and daily weights. Reportable symptoms reviewed. Continue maintenance Lasix. Discussion w patient/family: The assessment and plan as outlined above was discussed with the patient and/or family members who expressed understanding and agreement. All questions were answered. Thank you for involving us in the care of your patient. Please call with any questions. Subjective Principal diagnosis: Ischemic and non-ischemic CMP Interval history: Denies chest pain or SOB. Denies problems with right groin. Objective Vital Signs, Last 4 Hours Temp Pulse Resp BP Pulse Ox 11/19/16 07:51 98.1 F 86 17 123/109 96 General: Conversant, No Apparent Distress HEENT: Atraumatic, Normocephaly, Mucus Membranes Moist Neck: No JVD, Normal carotid pulses Cardiac: Reg Rate and Rhythm, Normal S1 and S2, No Murmur Lungs: Normal Breath Sounds, No Wheeze, Rales, Rhonchi Neuro: Alert and responsive, No focal deficits noted Abdomen: Soft, Non-Tender Skin: No rashes noted on visualized skin Musculoskeletal: No Chest Wall Tenderness Extremities: No Clubbing, No Cyanosis, No Edema, Normal Pulses, Other (Right groin soft, small amount of ecchymosis noted.) Results 11/19/16 05:44 11/19/16 06:56 Lab Results 11/19/16 11/19/16 05:44 06:56 WBC 6.9 Hgb 13.7 D Hct 43.3 Plt Count 225 Sodium 139 Potassium 4.0 Chloride 111 H Carbon Dioxide 20 BUN 16 Creatinine 1.07 Glucose 211 H Calcium 8.1 L D - Imaging and Cardiology Cardiac cath: report reviewed - EKG Interpretation EKG results cardiology: personally reviewed - VTE Documentation of Mechanical Device: Intermittent pneumatic compression device Consult Discharge Plan - Plan Instructions: Myocardial Infarction (DC), Atrial Fibrillation (DC), Heart Healthy Diet (DC), Syncope (DC), Diabetes Mellitus Type 2 in Adults (DC), Meal Planning with Diabetes Exchanges (DC), Chronic Hypertension (DC) Referrals: Tarik Barton DO [Primary Care Provider] -
[2016-11-19] MEDS: 0.9 % Sodium Chloride 1,000 ML IVC SCH (12:21)
--- NOTE | 2016-11-19 13:05 | Internal Med Progress Note ---
Date of Encounter: 11/19/16 Time of Encounter: 12:05 - Assessment and plan (1) Syncope Current Visit: Yes Status: Acute Assessment and plan: Likely vasovagal however given reduced EF, Life Vest recommended by cardiology until AICD placement No syncopal episodes reported since hospitalization Will continue tele monitoring Likely D/C in am after patient receives Life Vest Qualifiers: Syncope type: unspecified Qualified Code(s): R55 - Syncope and collapse (2) Cardiomyopathy Current Visit: Yes Status: Acute Assessment and plan: Ischemic/Nonischemic Cardiomyopathy History of CAD s/p PCI to LAD continue DAPT, statin, BB, ACEin BB dose increased for better BP control Cardiology consultation appreciated Continue Xarelto for anticoagulation for Afib Qualifiers: Cardiomyopathy type: unspecified Qualified Code(s): I42.9 - Cardiomyopathy , unspecified (3) Atrial fibrillation Current Visit: Yes Status: Acute Assessment and plan: Rate controlled with metoprolol anticoagulated with Xarelto Qualifiers: Atrial fibrillation type: persistent Qualified Code(s): I48.1 - Persistent atrial fibrillation (4) CKD stage 3 secondary to diabetes Current Visit: Yes Status: Chronic Assessment and plan: Renal function at baseline continue to monitor (5) Diabetes mellitus type 2 in obese Current Visit: Yes Status: Acute Assessment and plan: continue sliding scale insulin algorithm monitor fingerstick and blood glucose (6) DVT prophylaxis Current Visit: No Status: Acute Assessment and plan: anticoagulated with Xarelto (7) Hypertension Current Visit: Yes Status: Acute Assessment and plan: continue home medications BB dose increased for better control continue to closely monitor added hydralazine prn SBP>150 Qualifiers: Hypertension type: essential hypertension Qualified Code(s): I10 - Essential (primary) hypertension - Subjective Interval history: Patient seen and examined at bedside. REsting in bed and denies any discomfort at this time. S/P [facility] on 11/18/16 - Constitutional Vitals: Temp Pulse Resp BP Pulse Ox 98.0 F 100 17 141/96 98 11/19/16 11:25 11/19/16 11:25 11/19/16 11:25 11/19/16 11:25 11/19/16 11:25 General appearance: Present: A&O X 3, morbidly obese, no acute distress, answers questions appropriately - Head Head exam: Present: atraumatic, normocephalic - Eye Eye exam: Present: normal appearance, conjuntiva pink, sclera anicteric - Respiratory Respiratory exam: Present: CTAB. Absent: accessory muscle use, rales, rhonchi, wheezes - Cardiovascular Cardiovascular exam: Present: RRR, +S1, +S2. Absent: diastolic murmur, gallop, rubs, systolic murmur - GI/Abdominal GI/Abdominal exam: Present: distended (obese), normal bowel sounds, soft, no peritoneal signs. Absent: tenderness - Extremities Exam Extremities exam: Present: warm, radial pulses palpable and symetrical. Absent : calf tenderness, cyanotic, pedal edema - Neurological Exam Neurological exam: Present: alert, oriented X3, no focal deficits - Psychiatric Psychiatric exam: Present: normal affect, normal mood Internal Medicine: Result - Labs CBC & Chem 7: 11/19/16 05:44 11/19/16 06:56 Labs: Short CBC 11/19/16 Range/Units 05:44 WBC 6.9 (4.3-11.1) K/mcL Hgb 13.7 D (12.9-16.9) g/dL Hct 43.3 (37.5-50.1) % Plt Count 225 (140-400) K/mcL Neutrophils # 5.1 (1.6-8.9) K/mcL BMP 11/19/16 06:56 Sodium 139 Potassium 4.0 Chloride 111 H Carbon Dioxide 20 BUN 16 Creatinine 1.07 Glucose 211 H Calcium 8.1 L D - ABG Interpretation ABG results: PT/INR, D-dimer PT 15.9 Seconds (9.4-12.1) H 11/18/16 05:23 - VTE Documentation of Mechanical Device: Intermittent pneumatic compression device Consult Discharge Plan - Plan Instructions: Myocardial Infarction (DC), Atrial Fibrillation (DC), Heart Healthy Diet (DC), Syncope (DC), Diabetes Mellitus Type 2 in Adults (DC), Meal Planning with Diabetes Exchanges (DC), Chronic Hypertension (DC) Referrals: Tarik Barton DO [Primary Care Provider] -
[2016-11-19] MEDS ORDERED: *HR* Rivaroxaban 10 MG TABLET PO SCH (17:00)
[2016-11-20 06:20] LABS: Basophils % 0.3 %; Eosinophils # 0.1 K/mcL (0.0-0.6); Eosinophils % 1.4 %; Hematocrit 40.8 % (37.5-50.1); Hemoglobin 12.8 g/dL (12.9-16.9); Immature Granulocytes % 0.3 % (0-4); Lymphocytes # 1.4 K/mcL (0.6-4.6); Lymphocytes % 21.7 %; Mean Corpuscular HGB Conc 31.4 g/dL (31.6-35.5); Mean Corpuscular Hemoglobin 29.4 pg (28.0-33.3); Mean Corpuscular Volume 93.6 fL (83.0-100.0); Mean Platelet Volume 10.7 fL (9.4-12.4); Monocytes # 0.6 K/mcL (0.0-1.3); Monocytes % 9.7 %; Neutrophils # 4.2 K/mcL (1.6-8.9); Platelet Count 204 K/mcL (140-400); Red Blood Count 4.36 M/mcL (4.19-5.50); Red Cell Distribution Width 13.5 % (11.5-14.5); Segmented Neutrophils % 66.6 %
[2016-11-20 06:35] LABS: BUN/Creatinine Ratio 13 (6-26); Blood Urea Nitrogen 14 mg/dL (8-26); Calcium 8.4 mg/dL (8.6-10.8); Carbon Dioxide 22 mEq/L (19-29); Chloride 109 mEq/L (98-109); Glucose 164 mg/dL (70-99); Magnesium 1.5 mg/dL (1.6-2.6); Osmolality,Calculated 294 (280-300); Phosphorous 3.6 mg/dL (2.3-4.7); Sodium 140 mEq/L (136-145); eGFR For African Americans > 60 (> 60); eGFR For Non-African Americans > 60 (> 60)
[2016-11-20] MEDS ORDERED: Magnesium Sulfate 1 GM in D5% in Water 100 ML IVPB ONE (07:48)
[2016-11-20] MEDS: *HR* Digoxin 0.25 MG TABLET PO SCH (08:27)
[2016-11-20] MEDS: Aspirin 81 MG TAB.CHEW PO SCH (08:27)
[2016-11-20] MEDS: Metoprolol XL (24 HR) Succ 50 MG TAB.ER.24H PO SCH (08:28)
[2016-11-20] MEDS: Insulin LISPRO 300 UNITS/3 ML VIAL SQ SCH (08:30)
[2016-11-20 09:25] LABS: CK-MB (CK isoenzymes) 0 % (0-4); CK-MM (CK-isoenzymes) 100 % (96-100)
[2016-11-20 09:25] LABS: CK-MB (CK isoenzymes) 0 % (0-4); CK-MM (CK-isoenzymes) 100 % (96-100)
--- NOTE | 2016-11-20 11:56 | Discharge Summary ---
Date of Encounter: 11/20/16 Time of Encounter: 11:53 - Discharge Diagnosis (1) Syncope Priority: Primary Status: Acute Qualifiers: Syncope type: unspecified Qualified Code(s): R55 - Syncope and collapse (2) Cardiomyopathy Priority: Secondary Status: Chronic Qualifiers: Cardiomyopathy type: unspecified Qualified Code(s): I42.9 - Cardiomyopathy , unspecified (3) Atrial fibrillation Priority: Secondary Status: Chronic Qualifiers: Atrial fibrillation type: persistent Qualified Code(s): I48.1 - Persistent atrial fibrillation (4) CKD stage 3 secondary to diabetes Priority: Secondary Status: Chronic (5) Diabetes mellitus type 2 in obese Priority: Secondary Status: Acute (6) DVT prophylaxis Priority: Secondary Status: Acute (7) Hypertension Priority: Secondary Status: Chronic Qualifiers: Hypertension type: essential hypertension Qualified Code(s): I10 - Essential (primary) hypertension - Discharge Medications Prescriptions: Clopidogrel [Plavix] 75 mg PO DAILY #30 tablet Digoxin [Lanoxin] 0.25 mg PO DAILY #30 tablet Lisinopril [Zestril] 10 mg PO DAILY #30 tablet Metoprolol XL (24 HR) Succ [Toprol Xl] 150 mg PO BID #60 tab.er.24h Home Medications: Furosemide [Lasix] 40 mg PO DAILY 12/10/15 [History] Aspirin 81 mg PO DAILY #30 tab.chew 12/14/15 [Rx] Insulin DETEMIR [Levemir] 30 unit SQ HS 30 Days 12/14/15 [Rx] Insulin LISPRO [HumaLOG] 17 units SQ TIDWM 30 Days 12/14/15 [Rx] Rivaroxaban [Xarelto] 20 mg PO DAILY #30 tablet 12/14/15 [Rx] Atorvastatin Calcium [Lipitor] 20 mg PO DAILY 11/17/16 [History] Nitroglycerin [Nitrostat] 0.4 mg SL AD PRN 11/17/16 [History] Clopidogrel [Plavix] 75 mg PO DAILY #30 tablet 11/20/16 [Rx] Digoxin [Lanoxin] 0.25 mg PO DAILY #30 tablet 11/20/16 [Rx] Lisinopril [Zestril] 10 mg PO DAILY #30 tablet 11/20/16 [Rx] Metoprolol XL (24 HR) Succ [Toprol Xl] 150 mg PO BID #60 tab.er.24h 11/20/16 [Rx ] Allergies/Adverse Reactions: Allergies No Known Allergies Allergy (Verified 12/10/15 02:58) Procedures/tests Complete & Pending: Procedures Performed prior 72 hours Category Date Time Status CL Cardiac Catheterization [CL] Routine Validation Leader 11/17/16 15:50 Completed ECG 12 lead ECG [ECG] Stat Y 11/18/16 16:05 Ordered EV arterial imaging LE RT Stat Y 11/19/16 16:05 Completed Date of admission: 11/17/16 04:15 Primary care physician: Tarik Barton DO Consults: 11/17/16 03:23 Consult to Cardiology [CONS] Routine Comment: Consulting Provider: Cardiology Kami Reason for Consult: syncope, elevated troponin Call Completed: No 11/18/16 16:05 Consult to Cardiac Rehabilitation-Phase1 [CONS] Routine Comment: Reason for Consult: CAD s/p PCI, cardiomyopathy Call Completed: Yes Discharging clinician: Mandi Gunn Anticipated date of discharge: 11/20/16 - Patient Status Disposition: Home, Self-Care Condition: Good Functional capacity at discharge: independent ambulation Overall status at discharge: patient is back to baseline - Discharge Instructions Instructions: Metoprolol (By mouth), Clopidogrel (By mouth), Myocardial Infarction (DC), Atrial Fibrillation (DC), Heart Healthy Diet (DC), Syncope (DC) , Diabetes Mellitus Type 2 in Adults (DC), Meal Planning with Diabetes Exchanges (DC), Chronic Hypertension (DC) Follow Up With: Tarik Barton DO [Primary Care Provider] - Additional Instructions: Please follow-up with your archaeology professor within 5 days after discharge from the hospital. Please follow-up with your primary care physician within one week after discharge from the hospital. Your home medications have been readjusted. Your home medication carvedilol has been discontinued and metoprolol has been restarted. Your home dose of lisinopril has been decreased to 10 mg once daily. Lasix has been placed on hold. Plavix has been added to your home medications. Digoxin has been added to your home medications. Please closely monitor blood pressure at home. Continue to hold Lasix until your follow-up appointment with your archaeology professor. Continue to take Xarelto as prescribed by your archaeology professor. Continue all your other home medications as prescribed by your primary care physician Please continue to wear the Life Vest as recommended by cardiology. - Diet and Activity Activity: resume usual activities as tolerated Diet: diabetic diet, low salt diet Hospital course: Mr. Cross is a 51 year old male with past medical history of ischemic cardiomyopathy, chronic persistent atrial fibrillation on anticoagulation, diabetes mellitus type 2, CK-MB stage III who was admitted for management of syncopal episode. Patient was evaluated by cardiology and underwent left heart catheterization. He was noted to have ischemic and nonischemic cardiomyopathy with severely reduced ejection fraction. His beta sukumar therapy was changed and his home medications were readjusted by cardiology. Patient is to receive an ICD however in the waiting period, if life vest was provided to the patient. At this time patient has hemodynamically stable and in no distress. He will be discharged to home with follow-up with cardiology and primary care physician. - Time Spent with Patient Total time spent providing and/or coordinating discharge services: Greater than 30 minutes - Constitutional Vitals: Temp Pulse Resp BP Pulse Ox 98.4 F 78 16 113/89 95 11/20/16 03:58 11/20/16 07:35 11/20/16 03:58 11/20/16 07:39 11/20/16 07:35 General appearance: Present: A&O X 3, morbidly obese, no acute distress, answers questions appropriately - Head Head exam: Present: atraumatic, normocephalic - Eye Eye exam: Present: PERRL, conjuntiva pink, sclera anicteric - Respiratory Respiratory exam: Present: CTAB. Absent: accessory muscle use, rales, rhonchi, wheezes - Cardiovascular Cardiovascular exam: Present: RRR, +S1, +S2. Absent: diastolic murmur, gallop, rubs, systolic murmur - GI/Abdominal GI/Abdominal exam: Present: normal bowel sounds, soft, no peritoneal signs. Absent: distended, tenderness - Extremities Exam Extremities exam: Present: warm, radial pulses palpable and symetrical. Absent : calf tenderness, cyanotic, pedal edema - Neurological Exam Neurological exam: Present: alert, oriented X3 - Psychiatric Psychiatric exam: Present: normal affect, normal mood - VTE Documentation of Mechanical Device: Intermittent pneumatic compression device
[2016-11-20 12:13] VITALS: BP 130/94
--- NOTE | 2016-11-20 12:29 | Cardiology Progress Note ---
Date of Encounter: 11/20/16 Time of Encounter: 12:27 Assessment and Plan (1) Syncope Current Visit: Yes Status: Acute Viral type syndrome prior to admission with associated poor oral intake, nausea suggest vasovagal syndrome. However, EF noted to be low, which places patient at risk for malignant arrhythmias. Patient placed on appropriate therapy for cardiomyopathy in LifeVest placed. Qualifiers: Syncope type: unspecified Qualified Code(s): R55 - Syncope and collapse (2) Atrial fibrillation Current Visit: Yes Status: Chronic Chronic atrial fibrillation. Continue Toprol and digoxin therapy. Cardizem stopped secondary to low EF. Heart rate seems to be well controlled. Continue anticoagulation. Qualifiers: Atrial fibrillation type: persistent Qualified Code(s): I48.1 - Persistent atrial fibrillation (3) Cardiomyopathy Current Visit: Yes Status: Chronic Cardiomyopathy appears mixed, ischemic and nonischemic. Stent placement LAD due to severe stenosis. Global hypokinesis described, ? AF with RVR prior to admission contributing. Continue aggressive heart rate control along with management of CAD. Qualifiers: Cardiomyopathy type: unspecified Qualified Code(s): I42.9 - Cardiomyopathy , unspecified (4) CAD in [place] artery Current Visit: Yes Status: Acute (5) Presence of stent in LAD coronary artery Current Visit: Yes Status: Acute [place] CAD, stented LAD. Dual antiplatelet therapy emphasized. Continue statin and beta sukumar therapy. Risks of antiplatelet therapy along with anticoagulation discussed. Patient will call with any issues. Adjustment therapy will be performed by primary diesel engine assembler on an outpatient basis. Discussion w patient/family: The assessment and plan as outlined above was discussed with the patient and/or family members who expressed understanding and agreement. All questions were answered. Thank you for involving us in the care of your patient. Please call with any questions. Subjective Principal diagnosis: Ischemic and non-ischemic CMP Interval history: Patient seen and examined earlier today. Overall, reported he was feeling well. Heart rate well controlled. No chest pain, dyspnea, lightheadedness, near-syncope, or syncope reported. LifeVest placed yesterday and patient given education. Objective Vital Signs, Last 4 Hours Temp Pulse BP 11/20/16 12:07 97.9 F 77 130/94 General: Conversant, No Apparent Distress HEENT: Atraumatic, Normocephaly, Mucus Membranes Moist Neck: No JVD Cardiac: Other (Irregular rate and rhythm.) Lungs: Normal Breath Sounds, No Wheeze, Rales, Rhonchi Neuro: Alert and responsive, No focal deficits noted Abdomen: Soft, Non-Tender Skin: No rashes noted on visualized skin Musculoskeletal: No Chest Wall Tenderness Extremities: No Clubbing, No Cyanosis, No Edema Results 11/20/16 05:50 11/20/16 05:50 Lab Results 11/20/16 11/20/16 05:50 05:50 WBC 6.3 Hgb 12.8 L Hct 40.8 Plt Count 204 Sodium 140 Potassium 4.0 Chloride 109 Carbon Dioxide 22 BUN 14 Creatinine 1.04 Glucose 164 H Calcium 8.4 L Magnesium 1.5 L - Imaging and Cardiology Echo: report reviewed Cardiac cath: report reviewed - VTE Documentation of Mechanical Device: Intermittent pneumatic compression device Consult Discharge Plan - Plan Instructions: Metoprolol (By mouth), Clopidogrel (By mouth), Myocardial Infarction (DC), Atrial Fibrillation (DC), Heart Healthy Diet (DC), Syncope (DC) , Diabetes Mellitus Type 2 in Adults (DC), Meal Planning with Diabetes Exchanges (DC), Chronic Hypertension (DC) Additional Instructions: Please follow-up with your diesel engine assembler within 5 days after discharge from the hospital. Please follow-up with your primary care physician within one week after discharge from the hospital. Your home medications have been readjusted. Your home medication carvedilol has been discontinued and metoprolol has been restarted. Your home dose of lisinopril has been decreased to 10 mg once daily. Lasix has been placed on hold. Plavix has been added to your home medications. Digoxin has been added to your home medications. Please closely monitor blood pressure at home. Continue to hold Lasix until your follow-up appointment with your diesel engine assembler. Continue to take Xarelto as prescribed by your diesel engine assembler. Continue all your other home medications as prescribed by your primary care physician Please continue to wear the Life Vest as recommended by cardiology. Referrals: Tarki Barton DO [Primary Care Provider] - Prescriptions: Clopidogrel [Plavix] 75 mg PO DAILY #30 tablet Digoxin [Lanoxin] 0.25 mg PO DAILY #30 tablet Lisinopril [Zestril] 10 mg PO DAILY #30 tablet Metoprolol XL (24 HR) Succ [Toprol Xl] 150 mg PO BID #60 tab.er.24h
--- NOTE | 2016-11-20 14:58 | Arterial Study Report ---
LE Arterial Duplex Patient Name:Steve Cross Order Number:[id number] Procedure Date:11/19/2016 Date:1965Age:51 yrs Gender:Male Location:[facility] Room #: 2N13 Puppet Engineer:Adrienne Clayton RDCS Referring MD:Filemon Granda CNP gas pipe layer:Tarik Barton, DO Reading MD:Uday Vasquez MD , FACS Primary Indications:Evaluate for pseudoaneurysm Risk Factors Yes/No Hypertension Yes Diabetes Yes Anticoagulants Yes Previous Vascular Surgery No Impressions: Pseudoaneurym: none. Findings Arterial Duplex Results: Right: The PSV in the right distal external iliac artery is 61 cm/s. There is no evidence of a pseudoaneurysm. The PSV in the right common femoral artery is 41 cm/s. There is no evidence of a pseudoaneurysm. The PSV in the right proximal superficial femoral artery is 56 cm/s. There is no evidence of a pseudoaneurysm. Prior Study: No prior study available for comparison. SPOKE TO CINTHIA UPON COMPLETION OF EXAM. LE Duplex Side Vessel PSV EDV Assessment Right Distal External Iliac 61 1 Right Common Femoral 41 1 Right Prox Superficial Femoral 56 4 Updated by Uday Vasquez MD, FACS on 11/20/2016 2:54:27 PM Uday Vasquez MD electronically signed on 11/20/2016 2:55:09 PM with status of Final
[2016-11-21 07:29] LABS: CK Total (Ck Isoenzymes) 50 U/L (20-200); CK-BB (CK isoenzymes) 0 % (0-0)
[2016-11-21 07:29] LABS: CK Total (Ck Isoenzymes) 50 U/L (20-200); CK-BB (CK isoenzymes) 0 % (0-0)
--- NOTE | 2016-11-21 13:55 | Electrocardiograph Report ---
[place] [id number] Test Date: 2016-11-18 Pat Name: Steve Cross Department: 110 Room: 2N13 Gender: M Employee Relations Director: : 1965 Requested By: Linda Faulkner Order Number: [id number] Reading MD: Silviano Cavanaugh MD Measurements Intervals [place] Rate: 86 P: [place]: 0 QRS: 8 QRSD: 137 T: 26 QT: 374 QTc: 417 Interpretive Statements ATRIAL FIBRILLATION Poor R wave progression Electronically Signed On 11-21-2016 13:53:05 EDT by Silviano Cavanaugh MD
== END 2016-11-20 12:55 | disposition home or self-care (01) | DRG 175 ==
LOC: 2NENU → 2NNU 11-18 16:47
PROVIDERS: ADMIT Internal Medicine; ATTEND Internal Medicine